=== PATIENT | female | born 1960 | race American Indian/Alaskan Native ===

== ENCOUNTER 2016-05-30 10:49 | Inpatient (IN) | payer MEDICAID ==
[2016-05-30] MEDS ORDERED: ZOFRAN IV PRN (11:01)
[2016-05-30] MEDS ORDERED: D50W (25GM) IV PRN (11:01)
[2016-05-30] MEDS ORDERED: NACL 0.45% 1000 ML 1,000 ML IV SCH (12:00)
[2016-05-30] MEDS: NOVOLOG SUB-Q SCH ×3 (12:00→22:00)
[2016-05-30 12:59] LABS: Alanine Aminotransferase 13 units/L (7-56); Albumin 4.2 g/dL (3.9-5); Albumin/Globulin Ratio 1.1 %; Alkaline Phosphatase 80 units/L (35-129); Anion Gap 20 mmol/L; BUN/Creatinine Ratio 13.75; Bilirubin,Total 0.6 mg/dL (0.1-1.2); Blood Urea Nitrogen 11 mg/dL (7-17); Calcium 9.5 mg/dL (8.4-10.2); Carbon Dioxide 24 mmol/L (22-30); Chloride 101.6 mmol/L (98-107); Glucose 90 mg/dL (65-100); Potassium 3.2 mmol/L (3.6-5.0); Sodium 142 mmol/L (137-145); Total Protein 7.9 g/dL (6.3-8.2)
[2016-05-30 13:12] LABS: Hematocrit 42.9 % (30.3-42.9); Hemoglobin 13.9 gm/dl (10.1-14.3); Mean Corpuscular HGB Conc 33 % (30-34); Mean Corpuscular Hemoglobin 30 pg (28-32); Mean Corpuscular Volume 92 fl (79-97); Platelet Count 262 K/mm3 (140-440); Red Blood Count 4.65 M/mm3 (3.65-5.03); Red Cell Distribution Width 14.6 % (13.2-15.2); White Blood Count 10.5 K/mm3 (4.5-11.0)
[2016-05-30 13:21] LABS: INR 0.94 (0.87-1.13)
[2016-05-30 13:22] LABS: Partial Thromboplastin Time 30.7 Sec. (24.2-36.6)
[2016-05-30] MEDS: LEVAQUIN 750MG/150ML 750 MG/150 ML BAG IV SCH (14:00)
--- NOTE | 2016-05-30 14:22 | XRay Report ---
ROUTINE CHEST, TWO VIEWS: HISTORY: Cough, fever. The trachea, heart, mediastinal contour, lung villagomez and bony thorax are unremarkable. IMPRESSION: Unremarkable chest x-ray.
[2016-05-30 14:34] LABS: Basophils % (Manual) 0 % (0.0-1.8); Blastocytes % (Manual) 0 %; Eosinophils % (Manual) 0 % (0.0-4.3)
[2016-05-30 14:35] LABS: Diff Status Complete; RBC Morphology Normal
--- NOTE | 2016-05-30 14:51 | Admit Criteria Form ---
<KAREEM MONCADA - Last Filed: 05/30/16 20:20> Admission Criteria Documentation: ABDOMINAL PAIN Clinical Indications for Admission to Inpatient Care (Place 'X' for any and all applicable criteria): Admission is indicated for ANY ONE of the following(1)(2)(3)(4)(5): [X ]I. Inpatient admission required rather than observation care (Also use Abdominal Pain: Observation Care, as appropriate) because of ANY ONE of the following: [ ]a) Severe pain requiring acute inpatient management [ ]b) Identification of etiology/finding that requires inpatient care (eg, aortic dissection, free air) [ ]c) Absent bowel sounds with complete ileus(6) [ ]d) Suspected toxic megacolon [ ]e) Severe electrolyte abnormalities requiring inpatient care [ ]f) High fever or infection requiring inpatient admission as indicated by ANY ONE of following(7)(8): [ ] i) Appropriate outpatient or observational care antimicrobial treatment unavailable, not effective, or not feasible [ ] ii) Documented bacteremia [ ] iii) Temperature > 104.9 degrees F (oral) [ ] iv) T >103.1 F (oral) or < 96.8 F(rectal) that does not respond to all emergency treatment measures [ ]g) Signs of intestinal obstruction [B] [ ]h) Hemodynamic instability [ ]i) IV fluid to replace significant ongoing losses (greater than 3 L/m2 per day) (12)(13) [ ]j) Percutaneous or open drainage (eg, abscess, biliary tract ) procedures [ ]k) Parenteral nutrition regimen that must be implemented on inpatient basis [X ]l) Other condition,treatment or monitoring requiring inpatient admission. [ ]II. Peritoneal signs present [ ]III. Surgery needed that cannot be performed on an ambulatory basis. [ ]IV. Evaluation requires patient to not eat or drink for extended period ( eg, more than 24 hours). [ ]V. Contraindications and/or Inappropriate clinical situations for Observational Care in patients with abdominal pain, when ANY ONE of the following is required: [ ]a) Thorough evaluation is required to prevent catastrophic events due to delays in diagnosing (e.g.Mesenteric ischemia) 1,3 [ ]b) Patient with severe pathology or with chronic symptoms unlikely to improve in the ED stay (3) [ ]. General contraindications and/or Inappropriate clinical situations for Observational Care in patients with abdominal pain, when ANY ONE of the following is required: [ ]a) Prediction of prolongation of LOS based on ANY ONE of the following may be considered as a contraindication for observational care 2, 3, 4, 5, 6, 7, 8, 9, 10, 11 [ ]i) Age > 65 yrs. [ ]ii) Patient arriving by ambulance [ ]iii) Patient with high acuity [ ]iv) Patient requiring vital sign monitoring [ ]v) Patient on IV medication [ ]b) Systolic blood pressures 180mmHg 3,12 [ ]c) Patient with altered mental status including delirium and other alteration of consciousness, (3) [ ]d) Patient whose discharge disposition will be to a group home home or rehabilitation home should not be managed in Emergency Department Observation Unit. CMS rule requires 3 days hospital stay before such placement.3,13 [ ]e) Patient with failure to thrive due to broad array of etiologies 3,16,17 [ ]f) Inability to ambulate 3,14 Extended stay beyond goal length of stay may be needed for(2)(3): [ ]a) Persistent abdominal pain with suspected intra-abdominal process [ ]b) Diagnosed condition requiring continued stay (e.g., pancreatitis, complicated diverticulitis) [ ]c) Surgery (e.g., colectomy) The original [email or web address] content created by [employer] has been revised. The portions of the content which have been revised are identified through the use of italic text or in bold, and [email or web address] has neither reviewed nor approved the modified material.All other unmodified content is copyright [email or web address]. Please see references footnoted in the original [facility]! edition 2016 Admission Criteria Met: Yes <KEVIN DA SILVA - Last Filed: 06/02/16 08:53> Admission Criteria Met: Yes
[2016-05-30] MEDS ORDERED: NORCO 5/325 PO PRN (17:10)
[2016-05-30] MEDS: DUONEB 0.5 MG-3 MG/3 ML SOLN IH SCH ×3 (17:21→19:53)
[2016-05-30] MEDS: NORVASC PO SCH (18:00)
[2016-05-30] MEDS: KCL 10MEQ/100ML 10 MEQ/100 ML BAG IV SCH (21:23)
[2016-05-30] MEDS: COREG PO SCH (21:46)
[2016-05-30] MEDS: MUCINEX ER PO SCH (21:47)
[2016-05-30] MEDS: LOVENOX SUB-Q SCH (21:49)
[2016-05-30] MEDS ORDERED: HEPARIN SUB-Q SCH (22:00)
[2016-05-30] MEDS: PROTONIX IV SCH (22:25)
[2016-05-30] MEDS: K-DUR PO SCH (22:45)
[2016-05-31] MEDS: DUONEB 0.5 MG-3 MG/3 ML SOLN IH SCH ×4 (02:15→19:47)
[2016-05-31] MEDS: KCL 10MEQ/100ML 10 MEQ/100 ML BAG IV SCH (04:43)
[2016-05-31] MEDS: MORPHINE IV PRN ×4 (06:13→22:10)
[2016-05-31 06:22] LABS: Basophils % (Auto) 0.9 % (0.0-1.8); Hematocrit 36.7 % (30.3-42.9); Mean Corpuscular HGB Conc 33 % (30-34); Mean Corpuscular Hemoglobin 30 pg (28-32); Mean Corpuscular Volume 92 fl (79-97); Platelet Count 227 K/mm3 (140-440); Red Cell Distribution Width 14.1 % (13.2-15.2); White Blood Count 6.9 K/mm3 (4.5-11.0)
[2016-05-31 06:36] LABS: Alanine Aminotransferase 9 units/L (7-56); Albumin 3.5 g/dL (3.9-5); Albumin/Globulin Ratio 1.2 %; Alkaline Phosphatase 61 units/L (35-129); Anion Gap 16 mmol/L; Bilirubin,Total 0.4 mg/dL (0.1-1.2); Blood Urea Nitrogen 12 mg/dL (7-17); Calcium 8.8 mg/dL (8.4-10.2); Carbon Dioxide 24 mmol/L (22-30); Chloride 103.3 mmol/L (98-107); Glucose 96 mg/dL (65-100); Magnesium 1.9 mg/dL (1.7-2.3); Potassium 3.6 mmol/L (3.6-5.0); Sodium 140 mmol/L (137-145); Total Protein 6.5 g/dL (6.3-8.2)
[2016-05-31] MEDS: NOVOLOG SUB-Q SCH ×3 (08:00→18:00)
[2016-05-31] MEDS: K-DUR PO SCH (10:00)
[2016-05-31] MEDS: MUCINEX ER PO SCH ×2 (10:00→22:12)
[2016-05-31] MEDS: COREG PO SCH ×2 (10:00→22:13)
[2016-05-31] MEDS: NORVASC PO SCH (10:00)
[2016-05-31] MEDS: PROTONIX IV SCH (10:00)
[2016-05-31] MEDS: LEVAQUIN 750MG/150ML 750 MG/150 ML BAG IV SCH (11:00)
[2016-05-31] MEDS: APRESOLINE PO SCH ×2 (13:00→22:20)
--- NOTE | 2016-05-31 13:02 | History and Physical Report ---
History of Present Illness Date of examination: 05/30/16 Date of admission: 05/30/16 11:32 Chief complaint: Productive cough, sore throat, pain on swallowing, abdominal pain, nausea and vomiting, and fever for 3 days. History of present illness: Patient came into my office on with complaint of productive cough with greenish sputum, sore throat, odynophagia, and nasal congestion for 3 days. Had fever of 102 on 05/29/16 and has chills. Patient also has abdominal pain and states she has vomited 3 times since 05/29/16. Patient states she has been unable to keep anything down. Patient was previously in my office on 05/18 for upper respiratory symptoms and was treated with amoxicillin, benzonatate , loratadine and Tylenol with no relief. Patient is therefore being admitted for possible Pneumonia. Past History Past Medical History: diabetes, hypertension, other (Bipolar disorder) Social history: smoking Medications and Allergies Allergies Allergy/AdvReac Type Severity Reaction Status Date / Time losartan potassium Allergy Severe Swelling Verified 01/21/13 08:25 [From [facility]] Home Medications Medication Instructions Recorded Confirmed Last Taken Type Hydrochlorothiazide [Hctz] 25 mg PO QDAY 01/21/13 04/16/15 04/16/15 History Metoprolol [Lopressor] 100 mg PO BID 01/21/13 04/16/15 04/16/15 History HYDROcodone/APAP 10-325 [[place] 1 each PO Q6HR PRN #30 tablet 04/16/15 Unknown Rx 10/325] amLODIPine [Norvasc] 10 mg PO DAILY 04/16/15 04/16/15 04/16/15 History metFORMIN [Glucophage] 500 mg PO BID 04/16/15 04/16/15 04/16/15 History Active Meds: Active Medications Acetaminophen/Hydrocodone Bitart ([place] 5/325) 1 each PO Q6H PRN PRN Reason: Pain, Moderate (4-6) Albuterol/Ipratropium (Duoneb 0.5 Mg-3 Mg/3 Ml Soln) 1 ampul IH Q6HRT [facility] Last Admin: 05/31/16 07:55 Dose: 1 ampul Amlodipine Besylate (Norvasc) 10 mg PO QDAY [facility] Last Admin: 05/30/16 18:00 Dose: Not Given Carvedilol (Coreg) 25 mg PO BID [facility] Last Admin: 05/30/16 21:46 Dose: 25 mg Dextrose (D50w (25gm)) 50 ml IV PRN PRN PRN Reason: Hypoglycemia Enoxaparin Sodium (Lovenox) 40 mg SUB-Q QDAY@2200 [facility] Last Admin: 05/30/16 21:49 Dose: 40 mg Guaifenesin (Mucinex Er) 600 mg PO BID [facility] Last Admin: 05/30/16 21:47 Dose: 600 mg Hydralazine HCl (Apresoline) 100 mg PO BID [facility] Sodium Chloride (Nacl 0.45% 1000 Ml) 1,000 mls @ 100 mls/hr IV DIRECT [facility] Last Admin: 05/31/16 05:04 Dose: 100 mls/hr Levofloxacin/Dextrose (Levaquin 750mg/150ml) 750 mg in 150 mls @ 100 mls/hr IV Q24HR [facility] PRN Reason: Protocol Last Admin: 05/30/16 14:00 Dose: 100 mls/hr Insulin Aspart (Novolog) 0 units SUB-Q ACHS [facility] PRN Reason: Protocol Last Admin: 05/30/16 22:00 Dose: Not Given Morphine Sulfate (Morphine) 2 mg IV Q4H PRN PRN Reason: Pain, Moderate (4-6) Last Admin: 05/31/16 06:13 Dose: 2 mg Ondansetron HCl (Zofran) 4 mg IV Q8H PRN PRN Reason: Nausea And Vomiting Pantoprazole Sodium (Protonix) 40 mg IV DAILY [facility] Last Admin: 05/30/16 22:25 Dose: Not Given Potassium Chloride (K-Dur) 40 meq PO QDAY [facility] Stop: 06/02/16 22:44 Last Admin: 05/30/16 22:45 Dose: 40 meq Review of Systems Constitutional: fever, chills Ears, nose, mouth and throat: nasal congestion, sinus pain, sore throat, odynophagia, no ear pain, no ear discharge Cardiovascular: no chest pain, no orthopnea, no palpitations, no rapid/ irregular heart beat, no shortness of breath, no dyspnea on exertion, no paroxysmal nocturnal dyspnea, no leg edema Respiratory: cough, cough with sputum, congestion Gastrointestinal: abdominal pain, nausea, vomiting, no BRBPR, no melena, no hematochezia Genitourinary Female: no flank pain, no dysuria, no urinary frequency Rectal: no pain, no bleeding Musculoskeletal: no neck pain, no low back pain Neurological: no numbness, no tingling, no headaches Endocrine: no cold intolerance, no heat intolerance, no polyphagia, no excessive thirst, no polydipsia, no polyuria Hematologic/Lymphatic: no easy bruising, no easy bleeding, no lymphadenopathy Allergic/Immunologic: no urticaria, no allergic rhinitis, no wheezing Exam - Constitutional Vitals: Temp Pulse Resp BP Pulse Ox 97.8 F 66 16 158/100 98 05/31/16 08:00 05/31/16 08:12 05/31/16 08:12 05/31/16 08:00 05/31/16 08:00 General appearance: Present: mild distress - EENT Eyes: Present: PERRL, EOM intact ENT: hearing intact, clear oral mucosa - Neck Neck: Present: supple, normal ROM. Absent: enlarged thyroid, masses or JVD, carotid bruits - Respiratory Respiratory: bilateral: CTA - Cardiovascular Rhythm: regular Heart Sounds: Present: S1 & S2. Absent: systolic murmur, diastolic murmur - Extremities Extremities: no ischemia, pulses intact, pulses symmetrical, No edema - Abdominal General gastrointestinal: Present: soft, non-tender, non-distended, normal bowel sounds - Rectal Rectal Exam: deferred - Integumentary Integumentary: Present: clear, warm, dry - Musculoskeletal Musculoskeletal: strength equal bilaterally - Psychiatric Psychiatric: appropriate mood/affect - Neurologic Neurologic: moves all extremities Results - Labs CBC & Chem 7: 05/31/16 06:01 05/31/16 06:01 Labs: Abnormal lab results 05/30/16 05/30/16 05/31/16 Range/Units 12:16 12:16 00:09 [place] % (Auto) (0.0-7.3) % Seg Neuts % (Manual) 72.0 H (40.0-70.0) % Potassium 3.2 L (3.6-5.0) mmol/L POC Glucose 126 H (70-105) Albumin (3.9-5) g/dL 05/31/16 05/31/16 Range/Units 06:01 06:01 [place] % (Auto) 11.0 H (0.0-7.3) % Seg Neuts % (Manual) (40.0-70.0) % Potassium (3.6-5.0) mmol/L POC Glucose (70-105) Albumin 3.5 L (3.9-5) g/dL Assessment and Plan 1. Cough: CXR unremarkable, sputum culture contaminated, will repeat. Levaquin 750 mg IV qd, Mucinex 600 mg po bid, Duonebs 1inh qid prn. 2. Nausea/Vomiting: Zofran 4 mg IV tid prn, IVF. 3. DM-II: Accuchek ac/hs, A1c, lipid panel, SSI. 4. HTN: Amlodipine 10 mg po qd, Hydralazine 100 mg po bid, Carvedilol 25 mg po bid. 5. GI prophylaxis with Protonix 40 mg qd, DVT prophylaxis with Lovenox 40 mg SC qd. 6. Hypokalemia: KCL 40 meq po qd.
[2016-05-31] MEDS ORDERED: PROVENTIL IH PRN (21:00)
[2016-05-31] MEDS: LOVENOX SUB-Q SCH (22:12)
[2016-06-01] MEDS: NOVOLOG SUB-Q SCH ×2 (05:32→08:00)
--- NOTE | 2016-06-01 09:22 | Progress Note ---
Assessment and Plan 1. Peumonitis: F/u with sputum culture contaminated, On Levaquin 750 mg IV qd, Mucinex 600 mg po bid, Duonebs 1inh qid prn. 2. Nausea/Vomiting: resoving. On Zofran 4 mg IV tid prn, IVF. 3. DM-II: Accuchek ac/hs, A1c, lipid panel, SSI. 4. HTN:Controlled on Amlodipine 10 mg po qd, Hydralazine 100 mg po bid, Carvedilol 25 mg po bid. 5. GI prophylaxis with Protonix 40 mg qd, DVT prophylaxis with Lovenox 40 mg SC qd. 6. Hypokalemia: Corrected. D/c home today Subjective Date of service: 06/01/16 Principal diagnosis: Pneumonitis Interval history: Cough getting better. No fever Objective - Constitutional Vitals: Vital Signs - 12hr 05/31/16 05/31/16 22:00 22:13 Temperature 97.8 F Pulse Rate 63 Pulse Rate [ 63 Right From Monitor] Respiratory 20 Rate Blood Pressure 134/92 Blood Pressure 134/92 [Left Arm] O2 Sat by Pulse 99 Oximetry General appearance: Present: no acute distress, well-nourished - EENT Eyes: PERRL, EOM intact ENT: hearing intact, clear oral mucosa Ears: bilateral: normal - Neck Neck: supple, normal ROM - Respiratory Respiratory effort: normal Respiratory: bilateral: CTA - Cardiovascular Rhythm: regular Heart Sounds: Present: S1 & S2. Absent: gallop, rub Extremities: pulses intact, No edema, normal color, Full ROM - Gastrointestinal General gastrointestinal: Present: soft, non-tender, non-distended, normal bowel sounds - Integumentary Integumentary: clear, warm, dry - Musculoskeletal Musculoskeletal: 1, strength equal bilaterally - Neurologic Neurologic: moves all extremities - Psychiatric Psychiatric: memory intact, appropriate mood/affect, intact judgment & insight - Labs CBC & Chem 7: 05/31/16 06:01 05/31/16 06:01 Labs: Abnormal lab results 05/31/16 05/31/16 Range/Units 15:34 21:37 POC Glucose 139 H 119 H (70-105)
[2016-06-01 09:47] VITALS: BP 165/95
[2016-06-01] MEDS ORDERED: PROTONIX PO SCH (10:00)
--- NOTE | 2016-06-01 10:19 | Discharge Summary ---
Providers - Providers Date of Admission: 05/30/16 11:32 Date of discharge: 06/01/16 Attending physician: KEVIN DA SILVA Primary care physician: KEVIN DA SILVA Hospitalization Condition: Stable Pertinent studies: CXR was unremarkable. Procedures: None Hospital course: Patient with history of DM-II, HTN came in with productive cough, nausea and vomiting. Patient was commenced on IV Levaquin and Zofran. CXR was unremarkable. Sputum culture was unremarkable. Nausea and vomiting has resolved and patient is being discharged with her home meds. Disposition: DISCHARGED TO HOME OR SELFCARE Core Measure Documentation - Palliative Care Palliative Care/ Comfort Measures: Not Applicable - Core Measures Any of the following diagnoses?: none Exam - Constitutional Vitals: Temp Pulse Resp BP Pulse Ox 97.5 F L 99 H 18 165/95 57 L 06/01/16 08:00 06/01/16 08:00 06/01/16 08:00 06/01/16 08:00 06/01/16 08:00 General appearance: Present: no acute distress, well-nourished - EENT Eyes: Present: PERRL ENT: hearing intact, clear oral mucosa - Neck Neck: Present: supple, normal ROM - Respiratory Respiratory effort: normal Respiratory: bilateral: CTA - Cardiovascular Heart Sounds: Present: S1 & S2. Absent: rub, click - Extremities Extremities: pulses symmetrical, No edema Peripheral Pulses: within normal limits - Abdominal General gastrointestinal: Present: soft, non-tender, non-distended, normal bowel sounds Female genitourinary: Present: normal - Integumentary Integumentary: Present: clear, warm, dry - Musculoskeletal Musculoskeletal: gait normal, strength equal bilaterally - Psychiatric Psychiatric: appropriate mood/affect, intact judgment & insight - Neurologic Neurologic: CNII-XII intact, moves all extremities Plan Activity: advance as tolerated Diet: diabetic Special Instructions: record daily BP diary, record blood sugar diary Follow up with: KEVIN DA SILVA MD [Primary Care Provider] - 3 Days
[2016-06-02] MEDS ORDERED: LEVAQUIN PO SCH (10:00)
== END 2016-06-01 11:09 | disposition home or self-care (01) | DRG 195 ==
LOC: UNDOADMIN 10:49 → 3A 10:49 → 2B-SURG 11:32
PROVIDERS: ADMIT Family Medicine; ATTEND Family Medicine
DX: J18.9 Pneumonia, unspecified organism (principal); R11.2 Nausea with vomiting, unspecified; E87.6 Hypokalemia; I10 Essential (primary) hypertension; E11.9 Type 2 diabetes mellitus without complications; F31.9 Bipolar disorder, unspecified; Z88.8 Allergy status to other drugs, medicaments and biological substances; Z79.84 Long term (current) use of oral hypoglycemic drugs
CPT/HCPCS: 36415; 71020; 80053; 82962; 83036; 83735; 85007; 85025; 85610; 85730; 87205; 93005; 93010; 94640; 99406; C9113; J1650; J1815; J1956; J2270; J3480

== ENCOUNTER 2017-02-20 14:17 | Inpatient (IN) | payer MEDICAID ==
--- NOTE | 2017-02-20 14:33 | Emergency Department Report ---
Chief Complaint: Back Pain/Injury Stated Complaint: BACK PAIN - HPI History of Present Illness: This is a 56-year-old female nontoxic, well nourished in appearance, no acute signs of distress presents to the ED with c/o of low and middle back pain, chest pain, shortness of breath 1 day. Patient stasted she was just diagnosed with pneumonia and flu last week and is follow-up with Dr. Crain. Patient patient describes chest pain as aching with level of 8 out of 10. Denies any hemoptysis, fever, chills, nausea, vomiting, dysuria, polyuria, hematuria, calf pain, calf tenderness. Denies recent Travel long or long car rides. - Exam Vital Signs: Vital Signs 02/20/17 14:20 Temperature 98.6 F Pulse Rate 102 H Respiratory 20 Rate Blood Pressure 196/133 O2 Sat by Pulse 100 Oximetry Physical Exam: GENERAL: The patient is a well-developed, well-nourished female in no apparent distress. Patient is alert and acting appropriately for age. Alert and oriented 3, no apparent distress, normal gait, atraumatic. LUNGS: Clear to auscultation. Non labor breathing. No intercostal retractions. Symmetrical with respiration, no wheezing, no rales, or crackles. HEART: Regular rate and rhythm without murmur, rubs or gallops. No reproducible. S1, S2 present, regular rate and rhythm without murmur, no rubs, no gallops. Back; paraspinal tenderness to lumbar and thoracic region. No midline spinal tenderness. Negative CVA tenderness. MSE screening note: Focused history and physical exam performed. Due to findings the following was ordered: 1- This initial assessment/diagnostic orders/clinical plan/ treatment(s) is/are subject to change based on pt's health status, clinical progression and re- assessment by fellow clinical providers in the ED. Further treatment and workup at subsequent clinical provers discretion. Patient/guardians urged not to elope from ED as their condition may be serious if not clinically assessed and managed. 2-EKG, BMP, CBC, UA, TRop, cardiac CK, BNP, CXR ED Disposition for MSE Condition: Stable
--- NOTE | 2017-02-20 15:19 | XRay Report ---
CHEST TWO VIEWS: 02/20/17 14:17:00 CLINICAL: Chest pain. COMPARISON: 05/30/16 FINDINGS: Normal heart and pulmonary vasculature.Stable aortic tortuosity. The lungs are normally expanded and clear.The bones and soft tissues are unremarkable. IMPRESSION: Stable hypertensive changes of the aorta.No acute cardiopulmonary process.
[2017-02-20 15:21] LABS: Basophils % (Auto) 0.6 % (0.0-1.8); Eosinophils % (Auto) 0.1 % (0.0-4.3); Hematocrit 40.7 % (30.3-42.9); Mean Corpuscular HGB Conc 32 % (30-34); Mean Corpuscular Hemoglobin 30 pg (28-32); Mean Corpuscular Volume 95 fl (79-97); Red Blood Count 4.28 M/mm3 (3.65-5.03); Red Cell Distribution Width 14.8 % (13.2-15.2); White Blood Count 6.4 K/mm3 (4.5-11.0)
[2017-02-20 15:33] LABS: Creatine Kinase MB 1.8 ng/mL (0.0-4.0)
[2017-02-20 15:36] LABS: Anion Gap 21 mmol/L; BUN/Creatinine Ratio 18; Blood Urea Nitrogen 14 mg/dL (7-17); Carbon Dioxide 18 mmol/L (22-30); Chloride 106.4 mmol/L (98-107); Creatine Kinase 122 units/L (30-135); Glucose 176 mg/dL (65-100); Potassium 3.7 mmol/L (3.6-5.0); Sodium 142 mmol/L (137-145)
[2017-02-20 16:32] LABS: Platelet Count 60 K/mm3 (140-440)
[2017-02-21] MEDS ORDERED: TORADOL IM ONE (00:33)
[2017-02-21] MEDS ORDERED: PROVENTIL IH ONE (00:33)
[2017-02-21] MEDS ORDERED: TYLENOL PO ONE (00:33)
[2017-02-21] MEDS ORDERED: APRESOLINE IV ONE ×2 (00:35→02:11)
[2017-02-21] MEDS ORDERED: SUBLIMAZE IV ONE ×2 (00:35→02:10)
--- NOTE | 2017-02-21 00:36 | Emergency Department Report ---
ED General Adult HPI - General Chief complaint: Back Pain/Injury Stated complaint: BACK PAIN Time Seen by Provider: 02/21/17 00:21 Source: patient, RN notes reviewed, old records reviewed Mode of arrival: Ambulatory Limitations: No Limitations - History of Present Illness Initial comments: Primary care Dr.: Dr. Da Silva Past medical history: Tobacco consumption, diabetes, hypertension This is a 56-year-old female who was previously unknown to this provider. Presents to the ER pain and lower back pain. Pain started at 1:00 in the afternoon. Pain does not radiate anywhere. It increases with palpation, range of motion, coughing and deep inspiration. It decreases with rest. The back pain is in lower paralumbar region. It does not radiate anywhere. There is no abdominal pain. Of note, patient reports recent cold and upper respiratory like symptoms over the past 2 weeks. She thinks that she was treated for "pneumonia" and "flu" but doesn't recall what medication she was given. She thinks she was given a breathing medication and steroids but is not certain. No pulmonary embolus or DVT risk factors. -: Gradual Location: chest, back Radiation: non-radiation Quality: aching Consistency: intermittent Improves with: rest Worsens with: movement Associated Symptoms: chest pain, cough, loss of appetite, shortness of breath, weakness - Related Data Home Medications Medication Instructions Recorded Confirmed Last Taken Hydrochlorothiazide [HCTZ] 25 mg PO QDAY 01/21/13 02/21/17 02/20/17 amLODIPine [Norvasc] 10 mg PO DAILY 04/16/15 02/21/17 02/20/17 metFORMIN [Glucophage] 500 mg PO BID 04/16/15 02/21/17 02/20/17 Labetalol [Normodyne] 200 mg PO BID 02/21/17 02/21/17 02/20/17 Allergies Allergy/AdvReac Type Severity Reaction Status Date / Time losartan potassium Allergy Severe Swelling Verified 02/20/17 14:20 [From Jose] ED Review of Systems ROS: Stated complaint: BACK PAIN Other details as noted in HPI Constitutional: malaise, weakness ENT: congestion Respiratory: shortness of breath Cardiovascular: chest pain Gastrointestinal: denies: abdominal pain Musculoskeletal: back pain Neurological: weakness Psychiatric: anxiety ED Past Medical Hx - Past Medical History Hx Hypertension: Yes Hx Diabetes: Yes Hx COPD: No - Social History Smoking Status: Current Every Day Smoker Substance Use Type: None, Alcohol - Medications Home Medications: Home Medications Medication Instructions Recorded Confirmed Last Taken Type Hydrochlorothiazide [HCTZ] 25 mg PO QDAY 01/21/13 02/21/17 02/20/17 History amLODIPine [Norvasc] 10 mg PO DAILY 04/16/15 02/21/17 02/20/17 History metFORMIN [Glucophage] 500 mg PO BID 04/16/15 02/21/17 02/20/17 History Labetalol [Normodyne] 200 mg PO BID 02/21/17 02/21/17 02/20/17 History ED Physical Exam - General Limitations: No Limitations General appearance: alert, in no apparent distress - Head Head exam: Present: atraumatic, normocephalic - Eye Eye exam: Present: normal appearance, EOMI. Absent: nystagmus - ENT ENT exam: Present: normal exam, normal orophraynx, mucous membranes moist, normal external ear exam - Neck Neck exam: Present: normal inspection, full ROM - Respiratory Respiratory exam: Present: normal lung sounds bilaterally, chest wall tenderness. Absent: respiratory distress - Cardiovascular Cardiovascular Exam: Present: normal rhythm, tachycardia, normal heart sounds. Absent: systolic murmur, diastolic murmur, rubs, gallop - GI/Abdominal GI/Abdominal exam: Present: soft, normal bowel sounds. Absent: distended, tenderness, guarding, rebound, rigid, pulsatile mass - Extremities Exam Extremities exam: Present: normal inspection, full ROM, normal capillary refill. Absent: pedal edema, joint swelling, calf tenderness - Back Exam Back exam: Present: normal inspection, full ROM, paraspinal tenderness - Neurological Exam Neurological exam: Present: alert, oriented X3, normal gait, other (Extraocular movements intact. Tongue midline. No facial droop. Facial sensation intact to light touch in the V1, V2, V3 distribution bilaterally. 5 and 5 strength in 4 extremities.. Sensation is intact to light touch in 4 extremities.). Absent : motor sensory deficit - Psychiatric Psychiatric exam: Present: normal affect, normal mood - Skin Skin exam: Present: warm, dry, intact, normal color. Absent: rash ED Course Vital Signs 02/20/17 02/21/17 02/21/17 14:20 00:45 01:16 Temperature 98.6 F 98.0 F Pulse Rate 102 H 64 57 L Pulse Rate [ Anterior Bilateral Throughout] Respiratory 20 14 16 Rate Respiratory Rate [Anterior Bilateral Throughout] Blood Pressure 196/133 Blood Pressure 218/133 [Right] O2 Sat by Pulse 100 99 100 Oximetry 02/21/17 02/21/17 02/21/17 01:23 01:31 01:45 Temperature Pulse Rate 72 72 73 Pulse Rate [ Anterior Bilateral Throughout] Respiratory 11 L 11 L Rate Respiratory Rate [Anterior Bilateral Throughout] Blood Pressure 202/132 202/124 202/124 Blood Pressure [Right] O2 Sat by Pulse 100 98 Oximetry 02/21/17 02/21/17 02/21/17 02:00 02:15 02:18 Temperature Pulse Rate 61 66 76 Pulse Rate [ Anterior Bilateral Throughout] Respiratory 23 24 Rate Respiratory Rate [Anterior Bilateral Throughout] Blood Pressure 195/107 195/107 195/107 Blood Pressure [Right] O2 Sat by Pulse 100 Oximetry 02/21/17 02/21/17 02/21/17 02:20 02:30 03:31 Temperature Pulse Rate 78 Pulse Rate [ 71 Anterior Bilateral Throughout] Respiratory 28 H Rate Respiratory 18 Rate [Anterior Bilateral Throughout] Blood Pressure 178/101 178/107 Blood Pressure [Right] O2 Sat by Pulse 100 99 Oximetry 02/21/17 02/21/17 02/21/17 03:45 04:00 04:15 Temperature Pulse Rate Pulse Rate [ Anterior Bilateral Throughout] Respiratory Rate Respiratory Rate [Anterior Bilateral Throughout] Blood Pressure 178/107 156/83 178/107 Blood Pressure [Right] O2 Sat by Pulse 99 97 97 Oximetry - Reevaluation(s) Reevaluation #1: 02/21/17 01:20 Differential diagnosis, including but not limited to: Acute coronary syndrome, pneumonia, bronchitis, aortic dissection, pulmonary embolus, pneumonitis, pleuritis, hypertensive urgency Assessment and plan: 56-year-old female with what clinically sounds like the normal natural history of bronchitis. However she is markedly hypertensive. Therefore, we will obtain a CT scan of her chest, abdomen and pelvis to exclude aortic catastrophe and pulmonary embolus. No recent ACS risk stratification, troponin negative thus far, EKG suggests high left ventricular voltage. Patient will likely be admitted to the hospital for bronchitis, blood pressure control, and acute coronary syndrome or stratification. 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 No call back as of yet. Reevaluation #3: 02/21/17 04:58 CT scan of the chest, abdomen, pelvis demonstrated no pulmonary embolus or aortic catastrophe. Blood pressure is improved. Case presents to the Hospital physician, Dr. Cerrato, who accepted the patient to the medical service for hypertensive urgency and acs risk stratification - EJ/Peripheral Line Neck L Time Out Performed: Yes Indications: nurses unable to establis Skin Cleansed in Sterile Fashion: Yes Size: 18 Dressing Placed: Tegaderm Patient Tolerated Procedure: well ED Medical Decision Making - Lab Data Result diagrams: 02/20/17 14:43 02/20/17 14:43 Vital Signs 02/20/17 02/21/17 14:20 00:45 Temperature 98.6 F 98.0 F Pulse Rate 102 H 64 Respiratory 20 14 Rate Blood Pressure 196/133 Blood Pressure 218/133 [Right] O2 Sat by Pulse 100 99 Oximetry Lab Results 02/20/17 02/20/17 02/21/17 Range/Units 14:43 14:43 00:40 WBC 6.4 (4.5-11.0) K/mm3 RBC 4.28 (3.65-5.03) M/mm3 Hgb 13.0 (10.1-14.3) gm/dl Hct 40.7 (30.3-42.9) % MCV 95 (79-97) fl MCH 30 (28-32) pg MCHC 32 (30-34) % RDW 14.8 (13.2-15.2) % Plt Count 60 L (140-440) K/mm3 Lymph % (Auto) 17.9 (13.4-35.0) % Petroleum % (Auto) 2.3 (0.0-7.3) % Eos % (Auto) 0.1 (0.0-4.3) % Baso % (Auto) 0.6 (0.0-1.8) % Lymph # 1.1 L (1.2-5.4) K/mm3 Petroleum # 0.1 (0.0-0.8) K/mm3 Eos # 0.0 (0.0-0.4) K/mm3 Baso # 0.0 (0.0-0.1) K/mm3 Seg Neutrophils % 79.1 H (40.0-70.0) % Seg Neutrophils # 5.1 (1.8-7.7) K/mm3 Sodium 142 (137-145) mmol/L Potassium 3.7 (3.6-5.0) mmol/L Chloride 106.4 (98-107) mmol/L Carbon Dioxide 18 L (22-30) mmol/L Anion Gap 21 mmol/L BUN 14 (7-17) mg/dL Creatinine 0.8 (0.7-1.2) mg/dL Estimated GFR > 60 ml/min BUN/Creatinine Ratio 18 % Glucose 176 H (65-100) mg/dL Calcium 9.0 (8.4-10.2) mg/dL Total Creatine Kinase 122 (30-135) units/L CK-MB (CK-2) 1.8 (0.0-4.0) ng/mL CK-MB (CK-2) Rel Index 1.4 (0-4) Troponin T < 0.010 < 0.010 (0.00-0.029) ng/mL NT-Pro-B Natriuret Pep 491.8 (0-900) pg/mL - EKG Data -: EKG Interpreted by Me - EKG Data 02/21/17 01:22 EKG #1 demonstrates normal sinus, 91 bpm, normal axis, left ventricular hypertrophy, not morphologically consistent with ST elevation myocardial infarction. Repeat EKG is unchanged, suggest preexcitation components. - Radiology Data Radiology results: image reviewed interpreted by me: X-ray of the chest is negative for acute disease Critical care attestation.: If time is entered above; I have spent that time in minutes in the direct care of this critically ill patient, excluding procedure time. ED Disposition Clinical Impression: Hypertensive urgency, Chest pain Disposition: 09 OP ADMIT IP TO THIS HOSP Is pt being admited?: Yes Does the pt Need Aspirin: Yes Condition: Good Instructions: Chest Pain (ED) Referrals: KEVIN DA SILVA MD [Primary Care Provider] - 3-5 Days
[2017-02-21] MEDS ORDERED: NACL ONE (00:50)
--- NOTE | 2017-02-21 04:19 | Cat Scan Report ---
FINAL REPORT EXAM: CT ANGIO CHEST HISTORY: cp htn TECHNIQUE: CT imaging obtained through the chest in pulmonary angiographic phase following intravenous administration of contrast. Transaxial, Coronal and sagittal reformats with maximal intensity projections are provided. PRIORS: None. FINDINGS: Normal caliber main pulmonary artery. Well opacified pulmonary arterial tree. No pulmonary embolism. No pericardial effusion. Thoracic aorta is normal in course and caliber. No periaortic fluid or stranding. No pneumothorax, effusion or focal airspace disease. Linear bibasilar atelectasis/scarring. The central airways are patent. No bronchiectasis. Please see CT abdomen and pelvis of the same date. Is as The superficial soft tissues are unremarkable. No acute bony abnormality or worrisome osseous lesions identified. IMPRESSION: No pulmonary embolism or other acute finding.
--- NOTE | 2017-02-21 04:29 | Cat Scan Report ---
FINAL REPORT EXAM: CT ABDOMEN PELVIS W CON HISTORY: back pain htn TECHNIQUE: CT images are acquired through the Abdomen and Pelvis in arterial and delayed phases following intravenous administration of contrast. Transaxial, coronal and sagittal reformations are provided. PRIORS: None FINDINGS: Please see CT chest of the same date. Gallstones measuring up to 8 millimeters are suggested within the fundus and neck of the gallbladder. No evident gallbladder wall thickening, pericholecystic edema or stranding. No intra or extrahepatic biliary ductal dilatation. A 12 millimeter simple cyst is present in the right hepatic lobe. The liver is normal in size and contour and otherwise unremarkable. The pancreas, spleen and adrenal glands are unremarkable. Kidneys show no worrisome lesions, hydronephrosis, or calculi. Urinary bladder is unremarkable. Prior hysterectomy. Small and large bowel are normal in caliber. Appendix is normal. No free air, free fluid, or lymphadenopathy identified. Aorta is mildly tortuous but normal in caliber. No aortic wall irregularity, intraluminal filling defect, periaortic stranding or fluid. Superficial soft tissues are unremarkable. No acute or aggressive appearing skeletal findings. IMPRESSION: No acute findings in the abdomen or pelvis. Possible cholelithiasis measuring up to 8 millimeters. Differential diagnosis includes focal adenomyomatosis (Benign) and layering sludge. No CT evidence of acute cholecystitis. Consider ultrasound follow-up as warranted.
--- NOTE | 2017-02-21 04:41 | History and Physical Report ---
History of Present Illness Chief complaint: My chest hurts, and my back hurts History of present illness: 56 YO Female with HTN, DM, Nicotine Dependence presents to ED for evaluation. Pt states that she has experienced pain in her chest and back for the past 1 day. Pt states that symnptoms are persistent since their onset. Pt states that he pain began in her lower back yesterday, and that she also developed pain in her chest. Pain in her chest in 10, constant, aching, nonradiating, intermittent, associated with shortness of breath, worsened with movement and coughing, and relieved with rest. Pain in the back in in the lower lumbar region , constant, and has been present for months. Pt deneis fever, chills, palpitations, NVD, Syncope, BRBPR, productive cough, prolonged travel/immobility , individual/family history of DVT/PE, Leg swelling, calf pain. Pt seen and evaluated in ED and found to have symptoms consistent with ACS and angina at rest. Pt systolic BP was in the 170's. Past History Past Medical History: diabetes, hypertension Past Surgical History: No surgical history, Other (reviewed) Social history: single, smoking. denies: alcohol abuse, prescription drug abuse , IV drug use Family history: no significant family history (reviewed) Medications and Allergies Allergies Allergy/AdvReac Type Severity Reaction Status Date / Time losartan potassium Allergy Severe Swelling Verified 02/20/17 14:20 [From zanj] Home Medications Medication Instructions Recorded Confirmed Last Taken Type Hydrochlorothiazide [HCTZ] 25 mg PO QDAY 01/21/13 02/21/17 02/20/17 History amLODIPine [Norvasc] 10 mg PO DAILY 04/16/15 02/21/17 02/20/17 History metFORMIN [Glucophage] 500 mg PO BID 04/16/15 02/21/17 02/20/17 History Labetalol [Normodyne] 200 mg PO BID 02/21/17 02/21/17 02/20/17 History Review of Systems Constitutional: no weight loss, no weight gain, no fever, no chills Ears, nose, mouth and throat: no ear pain, no ear discharge, no tinnitis, no decreased hearing, no nose pain, no nasal congestion Breasts: no change in shape, no swelling, no mass Cardiovascular: chest pain, shortness of breath, dyspnea on exertion, no orthopnea, no palpitations, no rapid/irregular heart beat, no edema, no syncope Respiratory: no cough, no cough with sputum, no excessive sputum, no hemoptysis Gastrointestinal: no abdominal pain, no nausea, no vomiting, no diarrhea Genitourinary Female: no pelvic pain, no flank pain, no menorrhagia, no dysuria , no urinary frequency Rectal: no pain, no incontinence, no bleeding Musculoskeletal: no neck stiffness, no neck pain, no shooting arm pain, no arm numbness/tingling, no low back pain Integumentary: no rash, no pruritis, no redness, no sores, no wounds, no jaundice Neurological: no head injury, no transient paralysis, no paralysis, no weakness , no parathesias, no numbness, no tingling, no seizures Psychiatric: no anxiety, no memory loss, no change in sleep habits, no sleep disturbances, no insomnia, no hypersomnia, no change in appetite Endocrine: no cold intolerance, no heat intolerance, no polyphagia, no excessive thirst Hematologic/Lymphatic: no easy bruising, no easy bleeding Allergic/Immunologic: no urticaria, no allergic rhinitis, no wheezing Exam - Constitutional Vitals: Temp Pulse Resp BP Pulse Ox 98.0 F 78 28 H 178/107 97 02/21/17 00:45 02/21/17 02:30 02/21/17 02:30 02/21/17 04:15 02/21/17 04:15 General appearance: Present: mild distress - EENT Eyes: Present: PERRL ENT: hearing intact, clear oral mucosa - Neck Neck: Present: supple, normal ROM - Respiratory Respiratory effort: normal Respiratory: bilateral: CTA - Cardiovascular Heart Sounds: Present: S1 & S2. Absent: rub, click - Extremities Extremities: pulses symmetrical, No edema Peripheral Pulses: within normal limits - Abdominal General gastrointestinal: Present: soft, non-tender, non-distended, normal bowel sounds Female genitourinary: Present: normal - Integumentary Integumentary: Present: clear, warm, dry - Musculoskeletal Musculoskeletal: gait normal, strength equal bilaterally - Psychiatric Psychiatric: appropriate mood/affect, intact judgment & insight, agitated - Neurologic Neurologic: CNII-XII intact, moves all extremities Results - Labs CBC & Chem 7: 02/20/17 14:43 02/20/17 14:43 Labs: Abnormal lab results 02/20/17 02/20/17 Range/Units 14:43 14:43 Plt Count 60 L (140-440) K/mm3 Lymph # 1.1 L (1.2-5.4) K/mm3 Seg Neutrophils % 79.1 H (40.0-70.0) % Carbon Dioxide 18 L (22-30) mmol/L Glucose 176 H (65-100) mg/dL Assessment and Plan - Patient Problems (1) ACS (acute coronary syndrome) Current Visit: Yes Status: Acute Plan to address problem: Serial cardiac enzymes, ekg, telemetry, cardiology consulted, Echo, stress test , CTA chest, Morphine for chest pain, supplemental oxygen, nitro tabs, aspirin. (2) Diabetes Current Visit: Yes Status: Acute Plan to address problem: ADA diet, insulin, accu check (3) Nicotine dependence Current Visit: Yes Status: Acute Plan to address problem: Pt refused to pick quit date, (4) Hypertensive urgency Current Visit: Yes Status: Acute Plan to address problem: monitor bp q shift, supportive care, IV hydralazine prn (5) DVT prophylaxis Current Visit: Yes Status: Acute
[2017-02-21] MEDS ORDERED: PROVENTIL IH PRN (04:44)
[2017-02-21] MEDS ORDERED: ZOFRAN IV PRN (04:44)
[2017-02-21] MEDS ORDERED: NITROSTAT SL PRN (04:44)
[2017-02-21] MEDS ORDERED: BABY ASPIRIN PO STA (04:44)
[2017-02-21] MEDS ORDERED: SODIUM CHLORIDE FLUSH SYRINGE 10 ML IV PRN (04:44)
[2017-02-21] MEDS ORDERED: APRESOLINE IV PRN (04:54)
[2017-02-21] MEDS ORDERED: BABY ASPIRIN PO ONE (05:00)
[2017-02-21] MEDS ORDERED: D50W (25GM) Vial IV PRN (05:00)
[2017-02-21] MEDS ORDERED: NACL 0.45% 1000 ML 1,000 ML IV SCH (05:00)
[2017-02-21] MEDS: TYLENOL PO PRN ×2 (05:31→10:55)
[2017-02-21] MEDS: MORPHINE IV PRN ×2 (06:04→14:57)
[2017-02-21] MEDS ORDERED: ATIVAN IV PRN (07:22)
[2017-02-21] MEDS: NOVOLOG SUB-Q SCH ×4 (07:50→22:20)
--- NOTE | 2017-02-21 08:01 | Event Note ---
Date: 02/21/17 Patient was admitted with chest and back pain, scheduled for stress test Patient seen and examined, medical records reviewed, continue current management Follow stress test, if negative and patient is stable can be discharged, cardiology evaluation if needed
[2017-02-21] MEDS ORDERED: LEXISCAN IV ONE ×2 (08:18→08:19)
--- NOTE | 2017-02-21 09:24 | Progress Note ---
Assessment and Plan - ACS (acute coronary syndrome: F/u with Serial cardiac enzymes, ekg, cardiology consulted, Echo, stress test, result. CTA chest, Morphine for chest pain, supplemental oxygen, nitro tabs, aspirin. -Diabete: ADA diet, insulin, accu check - Nicotine dependence: Pt not willing to quit , - Hypertensive urgency: resume home meds. monitor bp q shift, supportive care, IV hydralazine prn - Hyperlipidemia: Statin Subjective Date of service: 02/21/17 Principal diagnosis: chest pain, hypertensive emergency Interval history: Pt well known to me transfered back to my service. Still having chest pain. Objective - Constitutional Vitals: Vital Signs - 12hr 02/21/17 02/21/17 02/21/17 00:45 01:16 01:23 Temperature 98.0 F Pulse Rate 64 57 L 72 Pulse Rate [ Anterior Bilateral Throughout] Respiratory 14 16 Rate Respiratory Rate [Anterior Bilateral Throughout] Blood Pressure 202/132 Blood Pressure 218/133 [Right] O2 Sat by Pulse 99 100 Oximetry 02/21/17 02/21/17 02/21/17 01:31 01:45 02:00 Temperature Pulse Rate 72 73 61 Pulse Rate [ Anterior Bilateral Throughout] Respiratory 11 L 11 L 23 Rate Respiratory Rate [Anterior Bilateral Throughout] Blood Pressure 202/124 202/124 195/107 Blood Pressure [Right] O2 Sat by Pulse 100 98 Oximetry 02/21/17 02/21/17 02/21/17 02:15 02:18 02:20 Temperature Pulse Rate 66 76 Pulse Rate [ 71 Anterior Bilateral Throughout] Respiratory 24 Rate Respiratory 18 Rate [Anterior Bilateral Throughout] Blood Pressure 195/107 195/107 Blood Pressure [Right] O2 Sat by Pulse 100 Oximetry 02/21/17 02/21/17 02/21/17 02:30 03:31 03:45 Temperature Pulse Rate 78 Pulse Rate [ Anterior Bilateral Throughout] Respiratory 28 H Rate Respiratory Rate [Anterior Bilateral Throughout] Blood Pressure 178/101 178/107 178/107 Blood Pressure [Right] O2 Sat by Pulse 100 99 99 Oximetry 02/21/17 02/21/17 02/21/17 04:00 04:15 04:30 Temperature Pulse Rate Pulse Rate [ Anterior Bilateral Throughout] Respiratory Rate Respiratory Rate [Anterior Bilateral Throughout] Blood Pressure 156/83 178/107 168/110 Blood Pressure [Right] O2 Sat by Pulse 97 97 97 Oximetry 02/21/17 02/21/17 02/21/17 05:00 05:15 05:30 Temperature Pulse Rate Pulse Rate [ Anterior Bilateral Throughout] Respiratory Rate Respiratory Rate [Anterior Bilateral Throughout] Blood Pressure 177/130 168/110 167/109 Blood Pressure [Right] O2 Sat by Pulse 98 100 97 Oximetry 02/21/17 02/21/17 02/21/17 05:31 05:45 06:00 Temperature Pulse Rate 72 Pulse Rate [ Anterior Bilateral Throughout] Respiratory Rate Respiratory Rate [Anterior Bilateral Throughout] Blood Pressure 178/130 177/130 152/101 Blood Pressure [Right] O2 Sat by Pulse 99 Oximetry 02/21/17 02/21/17 02/21/17 06:30 06:31 06:39 Temperature Pulse Rate 68 Pulse Rate [ Anterior Bilateral Throughout] Respiratory 16 Rate Respiratory Rate [Anterior Bilateral Throughout] Blood Pressure 165/111 168/111 Blood Pressure [Right] O2 Sat by Pulse Oximetry 02/21/17 07:25 Temperature Pulse Rate 81 Pulse Rate [ Anterior Bilateral Throughout] Respiratory 16 Rate Respiratory Rate [Anterior Bilateral Throughout] Blood Pressure Blood Pressure 150/89 [Right] O2 Sat by Pulse 100 Oximetry General appearance: Present: no acute distress, well-nourished - EENT Eyes: PERRL, EOM intact Ears: bilateral: normal - Neck Neck: supple, normal ROM - Respiratory Respiratory effort: normal Respiratory: bilateral: CTA - Cardiovascular Rhythm: regular Heart Sounds: Present: S1 & S2. Absent: gallop, rub Extremities: pulses intact, No edema, normal color, Full ROM - Gastrointestinal General gastrointestinal: Present: soft, non-tender, non-distended, normal bowel sounds - Integumentary Integumentary: clear, warm, dry - Musculoskeletal Musculoskeletal: 1, strength equal bilaterally - Neurologic Neurologic: moves all extremities - Psychiatric Psychiatric: memory intact, appropriate mood/affect, intact judgment & insight - Labs CBC & Chem 7: 02/20/17 14:43 02/20/17 14:43 Labs: Abnormal lab results 02/20/17 02/20/17 02/21/17 Range/Units 14:43 14:43 05:03 Plt Count 60 L (140-440) K/mm3 Lymph # 1.1 L (1.2-5.4) K/mm3 Seg Neutrophils % 79.1 H (40.0-70.0) % Carbon Dioxide 18 L (22-30) mmol/L Glucose 176 H (65-100) mg/dL Triglycerides 250 H (2-149) mg/dL Cholesterol 214 H (50-199) mg/dL
[2017-02-21] MEDS ORDERED: TYLENOL ONE (10:54)
--- NOTE | 2017-02-21 12:05 | Event Note ---
Date: 02/21/17 Lexiscan MPI stress test this AM negative for ischemia. Cardiology consult cancelled per Dr. Crain. Federica COX NP / DR. Chelly CARROLL
[2017-02-21] MEDS: NORVASC PO SCH (12:58)
[2017-02-21] MEDS: PEPCID PO SCH ×2 (12:59→22:19)
[2017-02-21] MEDS: NORMODYNE PO SCH ×2 (12:59→22:19)
[2017-02-21] MEDS: HCTZ PO SCH (13:00)
--- NOTE | 2017-02-22 01:13 | Treadmill Report ---
NUCLEAR PERFUSION SCAN REFERRING PHYSICIAN: Dr. Cerrato. PROTOCOL: The patient was brought to the stress lab in a postabsorptive state, given 10 mCi of technetium 99m at rest. The patient underwent rest imaging. The patient underwent Lexiscan stress test per standard protocol. At peak stress, the patient was given 26 mCi of technetium 99m. Shortly thereafter, the patient underwent stress imaging. Raw imaging reveals mild GI artifact, no significant motion artifact. SPECT imaging examined carefully in horizontal long axis, vertical long axis, short axis views. There is normal homogenous uptake of radioisotope in all reported segments. No evidence of a significant fixed or reversible perfusion defects suggestive of prior infarction or ischemia. Gated wall motion reveals normal systolic thickening, calculated ejection fraction of 62%. No TID. CONCLUSIONS: 1. Normal myocardial perfusion scan without evidence of active ischemia or prior infarction. 2. Normal left ventricular systolic performance without evidence of transient ischemic dilatation or stress-induced segmental wall motion abnormalities. JOB# [id number] MARIOLA/SANCHEZ
[2017-02-22] MEDS: NOVOLOG SUB-Q SCH ×2 (08:51→12:10)
[2017-02-22] MEDS: MORPHINE IV PRN ×2 (08:55→14:36)
[2017-02-22] MEDS: NORVASC PO SCH (09:52)
[2017-02-22] MEDS: PEPCID PO SCH (09:53)
[2017-02-22] MEDS: HCTZ PO SCH (09:53)
[2017-02-22] MEDS: NORMODYNE PO SCH (09:53)
--- NOTE | 2017-02-22 09:59 | Progress Note ---
Subjective Date of service: 02/22/17 Principal diagnosis: chest pain, hypertensive emergency Objective - Constitutional Vitals: Vital Signs - 12hr 02/21/17 02/21/17 02/21/17 22:00 22:19 23:03 Temperature 98.5 F Pulse Rate 80 87 77 Respiratory 20 Rate Blood Pressure 140/84 138/87 Blood Pressure [Right] O2 Sat by Pulse 96 Oximetry 02/22/17 02/22/17 02/22/17 03:32 08:35 08:52 Temperature 98.5 F 98.2 F Pulse Rate 63 65 Respiratory 19 18 Rate Blood Pressure Blood Pressure 130/91 134/91 [Right] O2 Sat by Pulse 97 97 Oximetry 02/22/17 02/22/17 09:52 09:53 Temperature Pulse Rate 65 65 Respiratory Rate Blood Pressure 134/91 134/91 Blood Pressure [Right] O2 Sat by Pulse Oximetry - Labs CBC & Chem 7: 02/20/17 14:43 02/20/17 14:43 Labs: Abnormal lab results 02/21/17 02/21/17 02/22/17 Range/Units 16:15 21:02 08:08 POC Glucose 119 H 109 H 169 H (70-105)
[2017-02-22] MEDS ORDERED: CITRATE OF MAGNESIA PO ONE (10:32)
[2017-02-22 13:20] VITALS: BP 151/98
--- NOTE | 2017-02-22 15:37 | History and Physical Report ---
History of Present Illness Date of examination: 02/22/17 Date of admission: 02/21/17 04:45 Chief complaint: chest pain History of present illness: Patient is a 56 y/o Female with HTN, DM, Nicotine Dependence presents to ED on account of Chest pain for the past 1 day. Pt states that symnptoms are persistent since onset. Pt states that he pain began in her lower back yesterday , and that she also developed pain in her chest with a severity of 6/10. constant, aching, nonradiating, intermittent, associated with shortness of breath, worsened with movement and coughing, and relieved with rest. Pain in the back in in the lower lumbar region, constant, and has been present for months. Pt deneis fever, chills, palpitations, NVD, Syncope, BRBPR. Has productive cough, Denies any prolonged travel/immobility, individual/family history of DVT/PE, Leg swelling, calf pain. On evaluated in the ED she was found to have symptoms consistent with ACS and angina at rest. Pt systolic BP was in the 170's. Pt was admitted to [facility], commenced on oxygen, Nitoglycerin , ASA and morphine. Stress thallium was done. Report was normal without any ishemic changes. still having cough with plueritic chest pain. No fever Past History Past Medical History: diabetes, hypertension Past Surgical History: No surgical history, Other (reviewed) Social history: single, smoking. denies: alcohol abuse, prescription drug abuse , IV drug use Family history: no significant family history (reviewed) Medications and Allergies Allergies Allergy/AdvReac Type Severity Reaction Status Date / Time losartan potassium Allergy Severe Swelling Verified 02/20/17 14:20 [From [facility]] Home Medications Medication Instructions Recorded Confirmed Last Taken Type Hydrochlorothiazide [HCTZ] 25 mg PO QDAY 01/21/13 02/21/17 02/20/17 History amLODIPine [Norvasc] 10 mg PO DAILY 04/16/15 02/21/17 02/20/17 History metFORMIN [Glucophage] 500 mg PO BID 04/16/15 02/21/17 02/20/17 History Labetalol [Normodyne] 200 mg PO BID 02/21/17 02/21/17 02/20/17 History Active Meds: Active Medications Acetaminophen (Tylenol) 650 mg PO Q4H PRN PRN Reason: Pain MILD(1-3)/Fever >100.5/GARCIA Last Admin: 02/21/17 10:55 Dose: 650 mg Albuterol (Proventil) 2.5 mg IH Q4HRT PRN PRN Reason: Shortness Of Breath Amlodipine Besylate (Norvasc) 10 mg PO DAILY [facility] Last Admin: 02/22/17 09:52 Dose: 10 mg Atorvastatin Calcium (Lipitor) 20 mg PO QHS [facility] Last Admin: 02/21/17 22:19 Dose: 20 mg Dextrose (D50w (25gm) Vial) 25 gm IV PRN PRN PRN Reason: Hypoglycemia Famotidine (Pepcid) 20 mg PO BID [facility] Last Admin: 02/22/17 09:53 Dose: 20 mg Hydralazine HCl (Apresoline) 10 mg IV Q6HR PRN PRN Reason: Hypertension Last Admin: 02/21/17 06:39 Dose: 10 mg Hydrochlorothiazide (Hctz) 25 mg PO QDAY [facility] Last Admin: 02/22/17 09:53 Dose: 25 mg Sodium Chloride (Nacl 0.45% 1000 Ml) 1,000 mls @ 42 mls/hr IV DIRECT [facility] Insulin Aspart (Novolog) 0 units SUB-Q ACHS [facility] PRN Reason: Protocol Last Admin: 02/22/17 12:10 Dose: Not Given Labetalol HCl (Normodyne) 200 mg PO BID [facility] Last Admin: 02/22/17 09:53 Dose: 200 mg Lorazepam (Ativan) 0.5 mg IV Q2H PRN PRN Reason: Anxiety Morphine Sulfate (Morphine) 2 mg IV Q4H PRN PRN Reason: Pain, Moderate (4-6) Last Admin: 02/22/17 14:36 Dose: 2 mg Nitroglycerin (Nitrostat) 0.4 mg SL Q5M PRN PRN Reason: Chest Pain Last Admin: 02/21/17 05:31 Dose: 0.4 mg Ondansetron HCl (Zofran) 4 mg IV Q8H PRN PRN Reason: N/V unrelieved by Reglan Sodium Chloride (Sodium Chloride Flush Syringe 10 Ml) 10 ml IV PRN PRN PRN Reason: LINE FLUSH Exam - Constitutional Vitals: Temp Pulse Resp BP Pulse Ox 98.4 F 57 L 18 151/98 97 02/22/17 13:18 02/22/17 13:18 02/22/17 13:18 02/22/17 13:18 02/22/17 13:18 Results - Labs CBC & Chem 7: 02/20/17 14:43 02/20/17 14:43 Labs: Abnormal lab results 02/21/17 02/21/17 02/22/17 Range/Units 16:15 21:02 08:08 POC Glucose 119 H 109 H 169 H (70-105)
--- NOTE | 2017-02-22 15:45 | Discharge Summary ---
Providers - Providers Date of Admission: 02/21/17 04:45 Date of discharge: 02/22/17 Attending physician: KEVIN DA SILVA 02/21/17 Consult to Cardiac Rehabilitation [CONS] Routine Reason For Exam: Phase I Primary care physician: KEVIN DA SILVA Hospitalization Reason for admission: chest pain Condition: Good Pertinent studies: CXR - normal CTA - No PE CT abdomen and pelvis: Gallbaldder stone without cholecyctitis Procedures: stress thallium showed no ischemic changes Hospital course: Patient is a 56 y/o Female with HTN, DM, Nicotine Dependence presents to ED on account of Chest pain for the past 1 day. Pt states that symnptoms are persistent since onset. Pt states that he pain began in her lower back yesterday , and that she also developed pain in her chest with a severity of 6/10. constant, aching, nonradiating, intermittent, associated with shortness of breath, worsened with movement and coughing, and relieved with rest. Pain in the back in in the lower lumbar region, constant, and has been present for months. Pt deneis fever, chills, palpitations, NVD, Syncope, BRBPR. Has productive cough, Denies any prolonged travel/immobility, individual/family history of DVT/PE, Leg swelling, calf pain. On evaluated in the ED she was found to have symptoms consistent with ACS and angina at rest. Pt systolic BP was in the 170's. Pt was admitted to [facility], commenced on oxygen, Nitoglycerin , ASA and morphine. Was still coughing with plueritic chest pain. No fever Stress thallium was done. Report was normal without any ishemic changes. Coughand lower back pain improved. chest pain was reproducible but improved. she is therefore being discharged today to follow up with PCP in 3- 5 days Disposition: [id number] TO HOME OR SELFCARE Time spent for discharge: 32 mins Core Measure Documentation - Palliative Care Palliative Care/ Comfort Measures: Not Applicable - Core Measures Any of the following diagnoses?: none Exam - Constitutional Vitals: Temp Pulse Resp BP Pulse Ox 98.4 F 57 L 18 151/98 97 02/22/17 13:18 02/22/17 13:18 02/22/17 13:18 02/22/17 13:18 02/22/17 13:18 General appearance: Present: no acute distress, well-nourished - EENT Eyes: Present: PERRL - Neck Neck: Present: supple, normal ROM - Respiratory Respiratory effort: normal Respiratory: bilateral: CTA - Cardiovascular Heart Sounds: Present: S1 & S2. Absent: rub, click - Extremities Extremities: pulses symmetrical, No edema Peripheral Pulses: within normal limits - Abdominal General gastrointestinal: Present: soft, non-tender, non-distended, normal bowel sounds Female genitourinary: Present: normal - Integumentary Integumentary: Present: clear, warm, dry - Musculoskeletal Musculoskeletal: gait normal, strength equal bilaterally - Psychiatric Psychiatric: appropriate mood/affect, intact judgment & insight - Neurologic Neurologic: CNII-XII intact, moves all extremities Plan Activity: fall precautions Weight Bearing Status: Weight Bear as Tolerated Diet: regular, low cholesterol Follow up with: KEVIN DA SILVA MD [Primary Care Provider] - 3-5 Days Prescriptions: ALBUTEROL NEB's [Proventil 0.083% NEBS] 2.5 mg IH Q4HRT PRN #100 nebu PRN Reason: Shortness Of Breath AtorvaSTATin [Lipitor] 20 mg PO QHS #30 tablet Famotidine [Pepcid] 20 mg PO BID #60 tablet Labetalol [Normodyne TAB] 200 mg PO BID #60 tablet metFORMIN [Glucophage] 500 mg PO BID #60 tablet Prednisone 10 mg PO DAILY #10 tablet traMADol [Ultram 50 MG tab] 50 mg PO Q12HR PRN #30 tablet PRN Reason: Pain
== END 2017-02-22 16:50 | disposition home or self-care (01) | DRG 305 ==
LOC: ED 14:17 → 4A 02-21 04:45
PROVIDERS: ADMIT Internal Medicine; ATTEND Family Medicine
DX: I16.0 Hypertensive urgency (principal); I24.9 Acute ischemic heart disease, unspecified; E11.9 Type 2 diabetes mellitus without complications; I10 Essential (primary) hypertension; F17.210 Nicotine dependence, cigarettes, uncomplicated; Z88.8 Allergy status to other drugs, medicaments and biological substances; Z79.899 Other long term (current) drug therapy; E78.5 Hyperlipidemia, unspecified; M54.5 Low back pain
CPT/HCPCS: 36415; 71020; 71275; 74177; 78452; 80048; 80061; 82550; 82553; 82962; 83036; 83880; 84484; 85025; 93005; 93010; 93017; 93306; 94644; 96374; 96375; 96376; 99406; A9270-GY; A9502; J0360; J2270; J2785; J3010; Q9967

== ENCOUNTER 2019-01-08 11:46 | Outpatient (CLI) | payer MEDICAID ==
--- NOTE | 2019-01-08 12:31 | XRay Report ---
RIGHT KNEE, 2 VIEWS INDICATION: M25.561 PAIN IN RIGHT KNEE/M17.11 UNILATERAL PRIMARY OSTEOARTHRIT. COMPARISON: None. IMPRESSION: Mild to moderate medial compartment joint space narrowing is identified. Mild tibial spi ne spurring. There is relative sparing of the lateral compartment and patellofemoral space. No eviden ce for fracture, bone lesion or significant joint effusion. Signer Name: Francois Guerra Jr, MD Signed: 01/08/2019 12:26 PM Workstation Name: [id number]
== END 2019-01-08 11:47 | disposition home or self-care (01) ==
LOC: XRAY 11:46
PROVIDERS: ATTEND Orthopaedic Surgery
DX: M17.11 Unilateral primary osteoarthritis, right knee (principal)

== ENCOUNTER 2020-01-03 11:25 | Emergency (ER) | payer MEDICAID ==
[2020-01-03] MEDS ORDERED: dexAMETHasone 20 MG/5 ML VIAL IM ONE (15:12)
[2020-01-03] MEDS ORDERED: KETOROLAC 60 MG/2 ML INJ IM ONE (15:12)
[2020-01-03] MEDS ORDERED: CYCLOBENZAPRINE 10 MG TAB PO ONE (15:12)
[2020-01-03 15:24] LABS: Bilirubin,Urine NEG (Negative); Blood,Urine SM (Negative); Color,Urine Straw (Yellow); Protein,Urine <15 mg/dL mg/dL (Negative); Urobilinogen,Urine < 2.0 mg/dL (<2.0)
--- NOTE | 2020-01-03 15:37 | Emergency Department Report ---
ED Back Pain/Injury HPI - General Chief Complaint: Back Pain/Injury Stated Complaint: BACK PAIN Time Seen by Provider: 01/03/20 14:49 Source: patient Limitations: No Limitations - History of Present Illness Initial Comments: Patient is a 59-year-old female presents emergency room complaints of left-sided back pain that began 3 days ago. She states that 3 days ago she was helping to lift some heavy pieces of fluid for firewood. She denies any fall or injury. She states that she has had urinary frequency with small amounts of output. She denies any nausea, vomiting, diarrhea, fever, numbness, weakness, bowel or bladder incontinence, vaginal discharge or irritation. She states that the pain is worse with movement and worse with lifting her left arm. She has a past me dical history of diabetes and hypertension. She has an allergy to losartan. She states that she did take her blood pressure medication this morning but also takes medication at night. - Related Data Home Medications Medication Instructions Recorded Confirmed Last Taken Latanoprost 0.005% [Xalatan 0.005%] 1 drop OP QPM 01/09/19 01/09/19 01/15/19 14:00 Lovastatin [Altoprev] 10 mg PO DAILY 01/09/19 01/09/19 01/15/19 14:00 NIFEdipine [Adalat cc] 90 mg PO DAILY 01/09/19 01/09/19 01/16/19 05:00 hydroCHLOROthiazide [HCTZ] 25 mg PO QDAY 01/09/19 01/09/19 01/15/19 14:00 labetaloL [Labetalol 200mg TAB] 100 mg PO BID 01/09/19 01/09/19 01/16/19 05:00 FLUoxetine [PROzac] 20 mg PO QDAY 01/10/19 01/10/19 01/15/19 14:00 Meloxicam [Mobic] 7.5 mg PO QDAY 01/10/19 01/10/19 01/15/19 14:00 Omeprazole 20 mg PO DAILY 01/10/19 01/10/19 01/16/19 05:00 Previous Rx's Medication Instructions Recorded Last Taken Type Apixaban [Eliquis] 5 mg PO DAILY #30 tablet 01/17/19 Unknown Rx Oxycodone HCl/Acetaminophen 1 each PO Q6HR PRN #30 tablet 01/17/19 Unknown Rx [Percocet 10/325 mg] Menthol/Camphor [[facility] 1 applic TP BID #8 oint...g. 01/03/20 Unknown Rx Ointment] Naproxen [EC-Naprosyn] 500 mg PO BID PRN #14 tablet. 01/03/20 Unknown Rx methOCARBAMOL [Robaxin TAB] 500 mg PO BID PRN #14 tab 01/03/20 Unknown Rx Allergies Allergy/AdvReac Type Severity Reaction Status Date / Time losartan potassium Allergy Severe Anaphylaxis Verified 01/09/19 14:38 [From [facility]] ED Review of Systems ROS: Stated complaint: BACK PAIN Other details as noted in HPI Comment: All other systems reviewed and negative ED Past Medical Hx - Past Medical History Previous Medical History?: Yes Hx Hypertension: Yes Hx Diabetes: Yes Hx GERD: Yes Hx Asthma: Yes Hx COPD: No Hx HIV: No - Surgical History Past Surgical History?: No - Social History Smoking Status: Current Every Day Smoker Substance Use Type: Alcohol, Marijuana - Medications Home Medications: Home Medications Medication Instructions Recorded Confirmed Last Taken Type Latanoprost 0.005% [Xalatan 0.005%] 1 drop OP QPM 01/09/19 01/09/19 01/15/19 14:00 History Lovastatin [Altoprev] 10 mg PO DAILY 01/09/19 01/09/19 01/15/19 14:00 History NIFEdipine [Adalat cc] 90 mg PO DAILY 01/09/19 01/09/19 01/16/19 05:00 History hydroCHLOROthiazide [HCTZ] 25 mg PO QDAY 01/09/19 01/09/19 01/15/19 14:00 History labetaloL [Labetalol 200mg TAB] 100 mg PO BID 01/09/19 01/09/19 01/16/19 05:00 History FLUoxetine [PROzac] 20 mg PO QDAY 01/10/19 01/10/19 01/15/19 14:00 History Meloxicam [Mobic] 7.5 mg PO QDAY 01/10/19 01/10/19 01/15/19 14:00 History Omeprazole 20 mg PO DAILY 01/10/19 01/10/19 01/16/19 05:00 History Apixaban [Eliquis] 5 mg PO DAILY #30 tablet 01/17/19 Unknown Rx Oxycodone HCl/Acetaminophen 1 each PO Q6HR PRN #30 tablet 01/17/19 Unknown Rx [Percocet 10/325 mg] Menthol/Camphor [[facility] 1 applic TP BID #8 oint...g. 01/03/20 Unknown Rx Ointment] Naproxen [EC-Naprosyn] 500 mg PO BID PRN #14 tablet.dr 01/03/20 Unknown Rx methOCARBAMOL [Robaxin TAB] 500 mg PO BID PRN #14 tab 01/03/20 Unknown Rx ED Physical Exam - General Limitations: No Limitations General appearance: alert, in no apparent distress - Head Head exam: Present: atraumatic, normocephalic - Eye Eye exam: Present: normal appearance - ENT ENT exam: Present: mucous membranes moist - Neck Neck exam: Present: normal inspection, full ROM. Absent: tenderness - Respiratory Respiratory exam: Present: normal lung sounds bilaterally. Absent: respiratory distress, wheezes, rales, rhonchi, stridor, chest wall tenderness, accessory muscle use, decreased breath sounds, prolonged expiratory - Cardiovascular Cardiovascular Exam: Present: regular rate, normal rhythm, normal heart sounds. Absent: systolic murmur, diastolic murmur, rubs, gallop - Back Exam Back exam: Present: normal inspection, full ROM, paraspinal tenderness (left sided T-spine and L-spine paraspinal muscular ttp, no midline C-spine, T-spine or L-spine ttp, no step offs, no deformities). Absent: vertebral tenderness - Neurological Exam Neurological exam: Present: alert, oriented X3, CN II-XII intact, normal gait. Absent: motor sensory deficit - Psychiatric Psychiatric exam: Present: normal affect, normal mood - Skin Skin exam: Present: warm, dry, intact ED Course Vital Signs 01/03/20 01/03/20 12:00 17:07 Temperature 97.7 F 98.0 F Pulse Rate 78 78 Respiratory 14 18 Rate Blood Pressure 176/108 Blood Pressure 183/118 [Left] O2 Sat by Pulse 98 98 Oximetry ED Medical Decision Making - Lab Data Lab Results 01/03/20 Range/Units Unknown Urine Color Straw (Yellow) Urine Turbidity Clear (Clear) Urine pH 7.0 (5.0-7.0) Ur Specific [place] 1.011 (1.003-1.030) Urine Protein <15 mg/dl (Negative) mg/dL Urine Glucose (UA) Neg (Negative) mg/dL Urine Ketones Neg (Negative) mg/dL Urine Blood Sm (Negative) Urine Nitrite Neg (Negative) Urine Bilirubin Neg (Negative) Urine Urobilinogen < 2.0 (<2.0) mg/dL Ur Leukocyte Esterase Neg (Negative) Urine WBC (Auto) 1.0 (0.0-6.0) /HPF Urine RBC (Auto) 3.0 (0.0-6.0) /HPF U Epithel Cells (Auto) 2.0 (0-13.0) /HPF - Medical Decision Making Patient is a 59-year-old female presents emergency room complaints of left-sided back pain that began 3 days ago. She states that 3 days ago she was helping to lift some heavy pieces of fluid for firewood. She denies any fall or injury. She states that she has had urinary frequency with small amounts of output. She denies any nausea, vomiting, diarrhea, fever, numbness, weakness, bowel or bladder incontinence, vaginal discharge or irritation. She states that the pain is worse with movement and worse with lifting her left arm. She has a past medical history of diabetes and hypertension. She has an allergy to losartan. She states that she did take her blood pressure medication this morning but also takes medication at night. Vitals with elevated blood pressure, otherwise stable, discussed patient's blood pressure elevation, discussed to keep a blood pressure log, discussed to eat a low-sodium diet, discussed increased water, discussed 30 to 60 minutes of daily exercise, she is not having any symptoms related to her BP, she has no proteinuria, the up to date medical literature does not recommend emergently lowering asymptomatic elevation of BP. on exam: left sided T-spine and L-spine paraspinal muscular ttp, no midline C-spine, T- spine or L-spine ttp, no step offs, no deformities, no focal neuro deficits. UA is within normal limits. Examination appears most consistent with muscle strain. She has no red flag warning signs of back pain, no trauma, no unexplained weight loss, no neuro deficits, no fever, no IV drug use, no steroid use, no history of cancer. Patient given Toradol, dexamethasone, Flexeril while in the emergency department as she did not drive and symptoms improved. Patient has had similar symptoms in the past, she has had scans performed in 2017 and 2018, lumbar x-ray no acute process, CT angio chest abdomen pelvis no signs of aortic aneurysm. do not suspect dissection at this time. she has no abd pain, no CP. examination is most consistent with muscle strain. Patient given prescription for Robaxin, naproxen, [place] balm ointment. Advised patient to please use medication as prescribed. May use ice pack, heating pad, rest, Epson salt bath. Follow-up with a primary care doctor. Follow-up with orthopedic doctor. Return to emergency room for any new or worsening symptoms. Critical care attestation.: If time is entered above; I have spent that time in minutes in the direct care of this critically ill patient, excluding procedure time. ED Disposition Clinical Impression: Back pain Qualifiers: Back pain location: back pain in unspecified location Chronicity: acute Back pain laterality: left Qualified Code(s): M54.9 - Dorsalgia, unspecified Disposition: - TO HOME OR SELFCARE Is pt being admited?: No Does the pt Need Aspirin: No Condition: Stable Instructions: Muscle Strain (ED), Back Pain (ED) Additional Instructions: please use medication as prescribed. May use ice pack, heating pad, rest, Epson salt bath. Follow-up with a primary care doctor. Follow-up with orthopedic doctor. Return to emergency room for any new or worsening symptoms. Prescriptions: Naproxen [EC-Naprosyn] 500 mg PO BID PRN #14 tablet.dr PRN Reason: pain methOCARBAMOL [Robaxin TAB] 500 mg PO BID PRN #14 tab PRN Reason: pain Menthol/Camphor [[facility] Ointment] 1 applic TP BID #8 oint...g. Referrals: KEVIN DA SILVA MD [Primary Care Provider] - 2-3 Days [facility] [Provider Group] - 2-3 Days KRISHNA ALVAREZ II, MD [Staff Physician] - 2-3 Days Time of Disposition: 16:48 Print Language: LITHUANIAN
[2020-01-03 17:08] VITALS: BP 183/118
== END 2020-01-03 17:08 | disposition home or self-care (01) ==
LOC: ED 11:25
DX: M54.6 Pain in thoracic spine (principal); I10 Essential (primary) hypertension; E11.9 Type 2 diabetes mellitus without complications; K21.9 Gastro-esophageal reflux disease without esophagitis; J45.909 Unspecified asthma, uncomplicated; F17.200 Nicotine dependence, unspecified, uncomplicated; F12.10 Cannabis abuse, uncomplicated; Z79.899 Other long term (current) drug therapy; Z88.8 Allergy status to other drugs, medicaments and biological substances
CPT/HCPCS: 81001; 96372; 99283; J1100; J1885